=== PATIENT | female | born 1940 | race Caucasian/White ===

== ENCOUNTER → 2018-01-18 | Outpatient (CLI) | payer MEDICARE, OTHER ==
[~2018-01-18] MED LIST: ALLOPURINOL 10100 M1 PO; BENTYL20 MG PO; CELEBREX50 MG PO; COZAAR 25 MG TA25 M2; DARVOCET-N 1001 EAC1 PO; NOLVADEX 10MG T10 M1; NORCO 5-325 TA1 EACH PO; PLAVIX 75 MG TA75 MG PO; PRILOSEC 20 MG20 MG PO; TOPROL XL25 MG PO; VITAMIN D1000 UNI1; ZOFRAN 4 MG ORAL4 MG PO
== END ==
LOC: M.RAD 13:51
DX: Z12.31 Encounter for screening mammogram for malignant neoplasm of breast (principal)

== ENCOUNTER → 2019-01-25 | Outpatient (CLI) | payer MEDICARE, OTHER | LOC: M.RAD 09:21 | DX: Z12.31 Encounter for screening mammogram for malignant neoplasm of breast (principal) ==

== ENCOUNTER → 2020-01-22 | Outpatient (CLI) | payer MEDICARE, OTHER | LOC: M.RAD 13:47 | PROVIDERS: ATTEND Internal Medicine Hematology & Oncology | DX: Z12.31 Encounter for screening mammogram for malignant neoplasm of breast (principal) ==

== ENCOUNTER → 2021-01-22 | Outpatient (CLI) | payer MEDICARE, OTHER | LOC: M.RAD 11:00 | PROVIDERS: ATTEND Nurse Practitioner Family | DX: Z12.31 Encounter for screening mammogram for malignant neoplasm of breast (principal); Z85.3 Personal history of malignant neoplasm of breast; Z90.12 Acquired absence of left breast and nipple ==